=== PATIENT | female | born 1990 | race American Indian/Alaskan Native ===

== ENCOUNTER 2018-06-08 06:00 | Emergency (ER) | payer MEDICAID ==
[2018-06-08] MEDS ORDERED: NACL 0.9% 1000 ML 1,000 ML IV ONE (08:36)
[2018-06-08] MEDS ORDERED: ZOFRAN IV ONE (08:36)
--- NOTE | 2018-06-08 08:37 | Emergency Department Report ---
ED General Adult HPI - General Chief complaint: Nausea/Vomiting/Diarrhea Stated complaint: ABDOMINAL PAIN Time Seen by Provider: 06/08/18 08:29 Source: patient, family, RN notes reviewed Mode of arrival: Ambulatory Limitations: No Limitations - History of Present Illness Initial comments: This is a 27-year-old female who is not known to this provider previously. Patient has a history of asthma, hypertension, and hyperemesis gravidarum. She presents to the ER complaining of lower abdominal cramping, twisting, nausea and vomiting 5, also admits to dysuria. She is not sure if she is . Her symptoms are constant, did not radiate anywhere, worsened when the patient attempts to eat, drink, and decreases with rest. On review of systems, the patient endorses resolved suicidality. She is not suicidal or homicidal currently. She denies access to guns or firearms, hallucinations, denies intentional overdose. -: Gradual Location: abdomen Radiation: non-radiation Quality: aching Consistency: intermittent Improves with: rest Worsens with: eating Associated Symptoms: loss of appetite, malaise, nausea/vomiting, weakness, other (see hpi). denies: confusion, chest pain, cough, diaphoresis, fever/ chills, shortness of breath, syncope - Related Data Previous Rx's Medication Instructions Recorded Last Taken Type Acetaminophen [Tylenol Arthritis] 650 mg PO Q6HR PRN #30 tablet.er 06/08/18 Unknown Rx Doxylamine Succinate/Vit B6 1 each PO QHS PRN #30 tablet. 06/08/18 Unknown Rx [Rodolfo Avila 10-10 mg Tablet] Ary Root [Ary] 250 mg PO QID PRN #30 capsule 06/08/18 Unknown Rx Ondansetron [Zofran Odt] 4 mg PO Q8HR PRN #20 tab.rapdis 06/08/18 Unknown Rx Vit Calc,Iron,Folic 1 each PO QDAY #30 tablet 06/08/18 Unknown Rx [ Vitamins] Allergies Allergy/AdvReac Type Severity Reaction Status Date / Time No Known Allergies Allergy Unverified 06/08/18 06:18 ED Review of Systems ROS: Stated complaint: ABDOMINAL PAIN Other details as noted in HPI Constitutional: malaise. denies: fever Eyes: denies: eye discharge ENT: denies: epistaxis Respiratory: denies: cough Cardiovascular: denies: chest pain Gastrointestinal: abdominal pain, nausea, vomiting Genitourinary: dysuria Musculoskeletal: arthralgia Skin: denies: lesions Neurological: weakness Psychiatric: anxiety. denies: homicidal thoughts ED Past Medical Hx - Past Medical History Hx Hypertension: Yes Hx Asthma: Yes Additional medical history: hyperemesis , htn, anemia, asthma - Surgical History Past Surgical History?: No - Social History Smoking Status: Never Smoker Substance Use Type: None - Medications Home Medications: Home Medications Medication Instructions Recorded Confirmed Last Taken Type Acetaminophen [Tylenol Arthritis] 650 mg PO Q6HR PRN #30 tablet.er 06/08/18 Unknown Rx Doxylamine Succinate/Vit B6 1 each PO QHS PRN #30 tablet.dr 06/08/18 Unknown Rx [Diclegis Dr 10-10 mg Tablet] Ary Root [Ary] 250 mg PO QID PRN #30 capsule 06/08/18 Unknown Rx Ondansetron [Zofran Odt] 4 mg PO Q8HR PRN #20 tab.rapdis 06/08/18 Unknown Rx Vit Calc,Iron,Folic 1 each PO QDAY #30 tablet 06/08/18 Unknown Rx [ Vitamins] ED Physical Exam - General Limitations: No Limitations General appearance: alert, anxious - Head Head exam: Present: atraumatic, normocephalic - Eye Eye exam: Present: normal appearance, EOMI. Absent: nystagmus - ENT ENT exam: Present: normal exam, normal orophraynx, mucous membranes moist, normal external ear exam - Neck Neck exam: Present: normal inspection, full ROM - Respiratory Respiratory exam: Present: normal lung sounds bilaterally. Absent: respiratory distress - Cardiovascular Cardiovascular Exam: Present: regular rate, normal rhythm, normal heart sounds. Absent: bradycardia, tachycardia, irregular rhythm, systolic murmur, diastolic murmur, rubs, gallop - GI/Abdominal GI/Abdominal exam: Present: soft, normal bowel sounds. Absent: distended, tenderness, guarding, rebound, rigid, pulsatile mass - External exam: Present: normal external exam Speculum exam: Present: normal speculum exam. Absent: cervical discharge, vaginal bleeding Bi-manual exam: Present: normal bi-manual exam, other (escorted by nurse Diana Sosa). Absent: cervical motion tendernes, adnexal tenderness, adnexal mass - Extremities Exam Extremities exam: Present: normal inspection, full ROM, normal capillary refill , other (2+ pulses noted in the bilateral upper, lower extremities. Compartments soft. No long bony tenderness. The pelvis is stable.). Absent: tenderness, pedal edema, joint swelling, calf tenderness - Back Exam Back exam: Present: normal inspection, full ROM. Absent: tenderness, CVA tenderness (R), paraspinal tenderness, vertebral tenderness - Neurological Exam Neurological exam: Present: alert, oriented X3, CN II-XII intact, normal gait, other (Extraocular movements intact. Tongue midline. No facial droop. Facial sensation intact to light touch in the V1, V2, V3 distribution bilaterally. 5 and 5 strength in 4 extremities.. Sensation is intact to light touch in 4 extremities.). Absent: motor sensory deficit - Psychiatric Psychiatric exam: Present: anxious. Absent: homicidal ideation - Skin Skin exam: Present: warm, dry, intact, normal color. Absent: rash ED Course Vital Signs 06/08/18 06/08/18 06/08/18 06:03 06:10 09:30 Temperature 98.5 F 98.5 F Pulse Rate 85 91 H Respiratory 18 18 17 Rate Blood Pressure 120/86 120/86 Blood Pressure [Left] O2 Sat by Pulse 93 100 Oximetry 06/08/18 06/08/18 10:00 11:25 Temperature 98.0 F Pulse Rate 90 Respiratory 17 17 Rate Blood Pressure Blood Pressure 122/79 [Left] O2 Sat by Pulse 99 Oximetry - Reevaluation(s) Reevaluation #1: 06/08/18 11:03 Differential diagnosis, including but not limited to: Urinary tract infection, hyperemesis, nausea and vomiting of , incidental , mood disorder, homelessness Assessment and plan: 27-year-old female with a primary complaint of abdominal pain, nausea and vomiting, secondary complaints are resolved suicidality and dysuria. The patient's primary issue appears to be nausea and vomiting associated with . She is afebrile with reassuring vital signs with no right lower quadrant tenderness, rebound or guarding. Her laboratory studies are thus far unremarkable she is Rh+, urinalysis is pending, pelvic ultrasound is pending. She will be given IV fluids and appropriate antiemetic medication. The patient is clinically sober at this time, has a Harper Coma Scale of 15, and is not currently homicidal or suicidal, and is not actively psychotic at this time. She therefore does not meet 1013 criteria. The patient was seen by the crisis team and case management, and was provided outpatient resources for her chronic psychiatric issues. Reevaluation #2: 06/08/18 12:15 Patient's ultrasound confirms intrauterine . Urinalysis demonstrates 37 white blood cells with small leukocyte esterase. No obvious bacteria noted. Cultures pending. She is not actively vomiting; symptoms may be secondary to chlamydia cystitis. Patient will therefore be covered empirically with ceftriaxone, azithromycin. She will be discharged with appropriate nausea medication, vitamins, ary supplementation, instructions to follow up with outpatient gynecology. She will be discharged at this time. 06/08/18 12:16 ED Medical Decision Making - Lab Data Result diagrams: 06/08/18 08:41 06/08/18 08:41 Vital Signs 06/08/18 06/08/18 06:03 06:10 Temperature 98.5 F 98.5 F Pulse Rate 85 91 H Respiratory 18 18 Rate Blood Pressure 120/86 120/86 O2 Sat by Pulse 93 100 Oximetry Lab Results 06/08/18 06/08/18 06/08/18 Range/Units 08:41 08:41 08:41 WBC 7.7 (4.5-11.0) K/mm3 RBC 4.83 (3.65-5.03) M/mm3 Hgb 13.2 (10.1-14.3) gm/dl Hct 40.3 (30.3-42.9) % MCV 83 (79-97) fl MCH 27 L (28-32) pg MCHC 33 (30-34) % RDW 17.6 H (13.2-15.2) % Plt Count 168 (140-440) K/mm3 Sodium 137 (137-145) mmol/L Potassium 4.3 (3.6-5.0) mmol/L Chloride 101.2 (98-107) mmol/L Carbon Dioxide 20 L (22-30) mmol/L Anion Gap 20 mmol/L BUN 6 L (7-17) mg/dL Creatinine 0.5 L (0.7-1.2) mg/dL Estimated GFR > 60 ml/min BUN/Creatinine Ratio 12 % Glucose 85 (65-100) mg/dL Calcium 9.3 (8.4-10.2) mg/dL Total Bilirubin 0.50 (0.1-1.2) mg/dL AST 16 (5-40) units/L ALT 14 (7-56) units/L Alkaline Phosphatase 38 (35-129) units/L Total Protein 7.6 (6.3-8.2) g/dL Albumin 4.3 (3.9-5) g/dL Albumin/Globulin Ratio 1.3 % Lipase 47 (13-60) units/L HCG, Quant 78382 H (0-4) mIU/mL Salicylates (2.8-20.0) mg/dL Acetaminophen (10.0-30.0) ug/mL Plasma/Serum Alcohol (0-0.07) % Blood Type Antibody Screen 06/08/18 06/08/18 06/08/18 Range/Units 08:41 08:41 08:41 WBC (4.5-11.0) K/mm3 RBC (3.65-5.03) M/mm3 Hgb (10.1-14.3) gm/dl Hct (30.3-42.9) % MCV (79-97) fl MCH (28-32) pg MCHC (30-34) % RDW (13.2-15.2) % Plt Count (140-440) K/mm3 Sodium (137-145) mmol/L Potassium (3.6-5.0) mmol/L Chloride (98-107) mmol/L Carbon Dioxide (22-30) mmol/L Anion Gap mmol/L BUN (7-17) mg/dL Creatinine (0.7-1.2) mg/dL Estimated GFR ml/min BUN/Creatinine Ratio % Glucose (65-100) mg/dL Calcium (8.4-10.2) mg/dL Total Bilirubin (0.1-1.2) mg/dL AST (5-40) units/L ALT (7-56) units/L Alkaline Phosphatase (35-129) units/L Total Protein (6.3-8.2) g/dL Albumin (3.9-5) g/dL Albumin/Globulin Ratio % Lipase (13-60) units/L HCG, Quant (0-4) mIU/mL Salicylates < 0.3 L (2.8-20.0) mg/dL Acetaminophen < 5.0 L (10.0-30.0) ug/mL Plasma/Serum Alcohol < 0.01 (0-0.07) % Blood Type Antibody Screen 06/08/18 Range/Units 09:26 WBC (4.5-11.0) K/mm3 RBC (3.65-5.03) M/mm3 Hgb (10.1-14.3) gm/dl Hct (30.3-42.9) % MCV (79-97) fl MCH (28-32) pg MCHC (30-34) % RDW (13.2-15.2) % Plt Count (140-440) K/mm3 Sodium (137-145) mmol/L Potassium (3.6-5.0) mmol/L Chloride (98-107) mmol/L Carbon Dioxide (22-30) mmol/L Anion Gap mmol/L BUN (7-17) mg/dL Creatinine (0.7-1.2) mg/dL Estimated GFR ml/min BUN/Creatinine Ratio % Glucose (65-100) mg/dL Calcium (8.4-10.2) mg/dL Total Bilirubin (0.1-1.2) mg/dL AST (5-40) units/L ALT (7-56) units/L Alkaline Phosphatase (35-129) units/L Total Protein (6.3-8.2) g/dL Albumin (3.9-5) g/dL Albumin/Globulin Ratio % Lipase (13-60) units/L HCG, Quant (0-4) mIU/mL Salicylates (2.8-20.0) mg/dL Acetaminophen (10.0-30.0) ug/mL Plasma/Serum Alcohol (0-0.07) % Blood Type B POSITIVE Antibody Screen Negative Critical care attestation.: If time is entered above; I have spent that time in minutes in the direct care of this critically ill patient, excluding procedure time. ED Disposition Clinical Impression: Disposition: DC-01 TO HOME OR SELFCARE Is pt being admited?: No Does the pt Need Aspirin: No Condition: Stable Instructions: Hyperemesis Gravidarum (ED), Urinary Tract Infection in Women (ED ), Mood Disorders (ED) Additional Instructions: Patient is found to be with an ultrasound confirming an appropriate within the uterus. Symptoms most likely coming from nausea and vomiting associated with . In addition, the urinalysis suggested a possible urinary tract infection. Cultures were sent today, and results will be available in the next 3-5 days. Patient should take the acetaminophen as directed as needed for pain, and the Ary and diclegis as first line therapy for nausea and vomiting associated with . Use the Zofran medication only if the patient has nausea and vomiting that does not respond to the Ary and diclegis. Urinalysis was suggestive but not diagnostic of chlamydia and urinary tract infection. A culture was sent today. Please have a joint filler or primary care doctor contact the medical records department to obtain the culture results. In the meantime, I recommended the patient abstain from sexual activity. Please follow up with a joint filler as soon as possible to initiate outpatient care. Please follow up with outpatient mental health resources that were provided to the patient within the next week. Please return to the ER right away with new pain, worsening pain, migration of pain, intractable nausea or vomiting, fevers or chills, inability to tolerate liquid feeds, confusion. Referrals: [facility] [Outside] - 3-5 Days [facility] [Primary Care Provider] - 3-5 Days [facility] [Provider Group] - 3-5 Days [facility] [Provider Group] - 3-5 Days [facility] [Provider Group] - 3-5 Days Print Language: PORTUGUESE
[2018-06-08 09:03] LABS: Hematocrit 40.3 % (30.3-42.9); Hemoglobin 13.2 gm/dl (10.1-14.3); Mean Corpuscular HGB Conc 33 % (30-34); Mean Corpuscular Hemoglobin 27 pg (28-32); Mean Corpuscular Volume 83 fl (79-97); Platelet Count 168 K/mm3 (140-440); Red Blood Count 4.83 M/mm3 (3.65-5.03); Red Cell Distribution Width 17.6 % (13.2-15.2)
[2018-06-08 09:08] LABS: Alanine Aminotransferase 14 units/L (7-56); Albumin 4.3 g/dL (3.9-5); BUN/Creatinine Ratio 12; Blood Urea Nitrogen 6 mg/dL (7-17); Calcium 9.3 mg/dL (8.4-10.2); Hemolysis Index 4; Lipase 47 units/L (13-60)
[2018-06-08] MEDS ORDERED: SUBLIMAZE IV ONE (09:27)
[2018-06-08] MEDS ORDERED: TYLENOL PO ONE (09:34)
[2018-06-08] MEDS ORDERED: REGLAN IV ONE (10:38)
[2018-06-08] MEDS ORDERED: D5/0.45NS 1,000 ML IV SCH (11:00)
[2018-06-08 11:26] VITALS: BP 122/79
--- NOTE | 2018-06-08 11:43 | Ultrasound Report ---
ULTRASOUND OB LESS THAN 14 WEEKS FETUS ULTRASOUND OB TRANSVAGINAL HISTORY: Abdominal pain during . COMPARISON: None. TECHNIQUE: Transabdominal and transvaginal ultrasound with color doppler interrogation. FINDINGS: Uterus: 10 x 6 x 7 cm. No uterine mass. Normal cervix. Endometrium: An intrauterine gestational sac containing a small pole and yolk sac is identified. Heart rate measures 152 beats per minute. Estimated age on ultrasound of 7 weeks 4 days. Right ovary: Normal. Left ovary: 1.7 cm cyst is noted. Trace fluid is identified in the cul-de-sac which is probably physiologic. Normal color doppler interrogation. IMPRESSION: Viable, single intrauterine as described. No acute abnormality is detected. 1.7 cm left ovarian cyst.
[2018-06-08 11:54] LABS: Bilirubin,Urine NEG (Negative); Blood,Urine NEG (Negative); Color,Urine Yellow (Yellow)
[2018-06-08 11:57] LABS: Amphetamine Screen,Urine PRESUMPTIVE NEGATIVE; Benzodiazepines Screen,Urine PRESUMPTIVE NEGATIVE; Cocaine Screen,Urine PRESUMPTIVE NEGATIVE; Methadone Screen,Urine PRESUMPTIVE NEGATIVE; Opiate Screen,Urine PRESUMPTIVE NEGATIVE
[2018-06-08] MEDS ORDERED: NACL 0.9% 1000 ML 0 ML ONE (12:05)
[2018-06-08] MEDS ORDERED: ROCEPHIN 250 MG in NACL 0.9% 50 ML IV STA (12:15)
[2018-06-08] MEDS ORDERED: ZITHROMAX PO ONE (12:15)
[2018-06-08 12:16] LABS: Cannabinoid Screen,Urine PRESUMPTIVE POSITIVE
== END 2018-06-08 14:03 | disposition home or self-care (01) ==
LOC: ED 06:00
DX: O21.0 Mild hyperemesis gravidarum (principal); I10 Essential (primary) hypertension; J45.909 Unspecified asthma, uncomplicated; Z86.2 Personal history of diseases of the blood and blood-forming organs and certain disorders involving the immune mechanism
CPT/HCPCS: 36415; 51701; 76801; 76817; 80053; 80307; 81001; 83690; 84702; 85027; 86850; 86900; 86901; 87086; 87210; 87591; 96361; 96374; 96375; 99284; G0480; J0696; J2405; J2765; J3010; J7030; 80320

== ENCOUNTER 2018-06-08 14:22 | Emergency (ER) | payer MEDICAID ==
[2018-06-08 14:29] VITALS: BP 155/93
--- NOTE | 2018-06-08 20:07 | Emergency Department Report ---
ED N/V/D HPI - General Chief complaint: Abdominal Pain Stated complaint: ABD PAIN/VOMITING Time Seen by Provider: 06/08/18 19:38 Source: patient, family Mode of arrival: Ambulatory Limitations: No Limitations - History of Present Illness Initial comments: This is a 27-year-old female who is not known to this provider previously. Patient has a history of asthma, hypertension, and hyperemesis gravidarum. She presents to the ER complaining of lower abdominal cramping, twisting, nausea and vomiting 5, also admits to dysuria. She is not sure if she is . Her symptoms are constant, did not radiate anywhere, worsened when the patient attempts to eat, drink, and decreases with rest. On review of systems, the patient endorses resolved suicidality. She is not suicidal or homicidal currently. She denies access to guns or firearms, hallucinations, denies intentional overdose. Patient was seen earlier today by Dr. Alexander and was treated for nausea and vomiting. She did not told him that she has constipation. She says she still have an abdominal pain to her epigastric area and also she is having in nausea and retching. Patient was given prescription for Diclegis just for nausea, Tylenol ES , ary root, Zofran. Patient apparently has a history of suicide ideation but she denies any suicidal ideation today or homicidal ideation. Patient states she is homeless and she lives in a alf and HER-2 other kids are with her father she has no one and she does have a right back to the alf. MD complaint: nausea, vomiting, abdominal pain, other (constipation) Onset/Timin (she was here today and was seen by Dr. Leatha Burkett) -: week(s) Description of Vomiting: food contents Associated Abdominal Pain: Yes Location: epigastric Radiation: none Severity: severe Pain Scale: 10 Quality: cramping Consistency: constant Improves with: none Worsens with: none Context: other ( with nausea and vomiting) Associated Symptoms: nausea/vomiting. denies: myalgias, chest pain, cough, diaphoresis, headaches, loss of appetite, malaise, rash, shortness of breath, syncope, weakness - Related Data Previous Rx's Medication Instructions Recorded Last Taken Type Acetaminophen [Tylenol Arthritis] 650 mg PO Q6HR PRN #30 tablet.er 06/08/18 Unknown Rx Bisacodyl [Dulcolax] 10 mg PO DAILY PRN 1 Days #2 tab 06/08/18 Unknown Rx Doxylamine Succinate/Vit B6 1 each PO QHS PRN #30 tablet. 06/08/18 Unknown Rx [Rodolfo Avila 10-10 mg Tablet] Ary Root [Ary] 250 mg PO QID PRN #30 capsule 06/08/18 Unknown Rx Nitrofurantoin [place]/M-Cryst 100 mg PO Q12HR 7 Days #14 capsule 06/08/18 Unknown Rx [Macrobid CAP] Ondansetron [Zofran Odt] 4 mg PO Q8HR PRN #20 tab.rapdis 06/08/18 Unknown Rx Vit Calc,Iron,Folic 1 each PO QDAY #30 tablet 06/08/18 Unknown Rx [ Vitamins] Sodium Phosphate,[place]-Dibasic 118 ml RC ONCE 1 Days #1 enema 06/08/18 Unknown Rx [Fleet Enema] Allergies Allergy/AdvReac Type Severity Reaction Status Date / Time No Known Allergies Allergy Verified 06/08/18 14:27 ED Review of Systems ROS: Stated complaint: ABD PAIN/VOMITING Other details as noted in HPI Constitutional: denies: chills, fever Eyes: denies: eye pain, eye discharge, vision change ENT: denies: ear pain, throat pain, congestion Respiratory: denies: cough, shortness of breath, SOB with exertion, SOB at rest , stridor, wheezing Cardiovascular: denies: chest pain, palpitations, edema, syncope Gastrointestinal: abdominal pain, nausea, vomiting, constipation. denies: diarrhea, hematemesis, melena, hematochezia Genitourinary: dysuria, other (, no vaginal bleeding. Denies any vaginal discharge). denies: urgency, frequency, hematuria, discharge Musculoskeletal: denies: back pain, joint swelling, arthralgia, myalgia Skin: denies: rash, lesions Neurological: denies: headache, weakness, numbness, paresthesias, confusion, abnormal gait, vertigo ED Past Medical Hx - Past Medical History Previous Medical History?: Yes Hx Hypertension: Yes Hx Asthma: Yes Additional medical history: hyperemesis , htn, anemia, asthma - Surgical History Past Surgical History?: Yes - Family History Family history: hypertension - Social History Smoking Status: Current Every Day Smoker Substance Use Type: Marijuana - Medications Home Medications: Home Medications Medication Instructions Recorded Confirmed Last Taken Type Acetaminophen [Tylenol Arthritis] 650 mg PO Q6HR PRN #30 tablet.er 06/08/18 Unknown Rx Bisacodyl [Dulcolax] 10 mg PO DAILY PRN 1 Days #2 tab 06/08/18 Unknown Rx Doxylamine Succinate/Vit B6 1 each PO QHS PRN #30 tablet.dr 06/08/18 Unknown Rx [Diclegis Dr 10-10 mg Tablet] Ary Root [Ary] 250 mg PO QID PRN #30 capsule 06/08/18 Unknown Rx Nitrofurantoin [place]/M-Cryst 100 mg PO Q12HR 7 Days #14 capsule 06/08/18 Unknown Rx [Macrobid CAP] Ondansetron [Zofran Odt] 4 mg PO Q8HR PRN #20 tab.rapdis 06/08/18 Unknown Rx Vit Calc,Iron,Folic 1 each PO QDAY #30 tablet 06/08/18 Unknown Rx [ Vitamins] Sodium Phosphate,[place]-Dibasic 118 ml RC ONCE 1 Days #1 enema 06/08/18 Unknown Rx [Fleet Enema] ED Physical Exam - General Limitations: No Limitations General appearance: alert, in no apparent distress - Head Head exam: Present: atraumatic, normocephalic, normal inspection - Eye Eye exam: Present: normal appearance, PERRL, EOMI. Absent: periorbital swelling , periorbital tenderness Pupils: Present: normal accommodation - ENT ENT exam: Present: normal exam, normal orophraynx, mucous membranes moist, TM's normal bilaterally, normal external ear exam - Neck Neck exam: Present: normal inspection, full ROM. Absent: tenderness, lymphadenopathy - Respiratory Respiratory exam: Present: normal lung sounds bilaterally. Absent: respiratory distress, chest wall tenderness - Cardiovascular Cardiovascular Exam: Present: normal rhythm, tachycardia, normal heart sounds. Absent: systolic murmur, diastolic murmur - GI/Abdominal GI/Abdominal exam: Present: soft, normal bowel sounds. Absent: distended, tenderness, guarding, rebound, rigid, organomegaly, mass, bruit, pulsatile mass , hernia - Extremities Exam Extremities exam: Present: normal inspection, full ROM, normal capillary refill , other (No cce. + 2 pulses in all extremities, no neurovascular compromise). Absent: tenderness, pedal edema, joint swelling, calf tenderness - Back Exam Back exam: Present: normal inspection, full ROM, other. Absent: tenderness, CVA tenderness (R), CVA tenderness (L), muscle spasm, paraspinal tenderness, vertebral tenderness, rash noted - Neurological Exam Neurological exam: Present: alert, oriented X3 - Psychiatric Psychiatric exam: Present: normal affect, normal mood - Skin Skin exam: Present: warm, dry, intact, normal color. Absent: rash ED Course Vital Signs 06/08/18 06/08/18 14:27 23:01 Temperature 98.2 F Pulse Rate 105 H 100 H Respiratory 16 Rate Blood Pressure 155/93 O2 Sat by Pulse 99 Oximetry - Reevaluation(s) Reevaluation #1: 06/08/18 21:50 She was given normal saline bolus and Zofran 8 mg IV. She reports that her abdominal pain is gone and she is feeling a lot better. She denies any nausea or vomiting at present. I discussed the patient that she has a urinary tract infection and I will put her on Macrobid to start before she leaves the hospital. Abdominal exam remains the same Reevaluation #2: 06/08/18 23:12 No changes in abdominal assessment she says she is feeling a lot better. Patient has prescription for the diglegis, ary root, Tylenol extra strength, Zofran that she was given today prior to her discharge. She is able to tolerate oral liquids without any difficulties. No abdominal pain or nausea vomiting at present. ED Medical Decision Making - Lab Data Patient had a urinalysis today does show that she has white cells in her urine, leukocyte esterase but no bacteria. She was treated and main ED with azithromycin and Rocephin for STD and cultures were sent off. She had 20 of ketones in her urine. Patient chemistry was normal. 1 dictated hCG correlates with ultrasound. - Radiology Data Radiology results: report reviewed Ultrasound transabdominal intense vaginal shows viable intrauterine at 7 weeks and 4 days with heart rate at 152 bpm. Right ovary is normal and left ovary with cyst. This was dictated by radiologist and report was reviewed myself. Patient: DANK MURRAY MR#: [id number] : 1990 Acct:[id number] Age/Sex: 27 / F ADM Date: 06/08/18 Loc: ED Attending Dr: Ordering Physician: HEYDI ALEXANDER MD Date of Service: 06/08/18 Procedure(s): US OB transvaginal Accession Number(s): [id number] cc: HEYDI ALEXANDER MD ULTRASOUND OB LESS THAN 14 WEEKS FETUS ULTRASOUND OB TRANSVAGINAL HISTORY: Abdominal pain during . COMPARISON: None. TECHNIQUE: Transabdominal and transvaginal ultrasound with color doppler interrogation. FINDINGS: Uterus: 10 x 6 x 7 cm. No uterine mass. Normal cervix. Endometrium: An intrauterine gestational sac containing a small pole and yolk sac is identified. Heart rate measures 152 beats per minute. Estimated age on ultrasound of 7 weeks 4 days. Right ovary: Normal. Left ovary: 1.7 cm cyst is noted. Trace fluid is identified in the cul-de-sac which is probably physiologic. Normal color doppler interrogation. IMPRESSION: Viable, single intrauterine as described. No acute abnormality is detected. 1.7 cm left ovarian cyst. Transcribed By: TTR Dictated By: GENO DUPREE JR, MD Electronically Authenticated By: GENO DUPREE JR, MD Signed Date/Time: 06/08/18 1137 DD/ 1135 TD/TT: 06/08/18 1137 Findings [facility] [address] [place] [address] Ultrasound Report Signed Patient: DANK MURRAY MR#: [id number] : 1990 Acct:[id number] Age/Sex: 27 / F ADM Date: 06/08/18 Loc: ED Attending Dr: Ordering Physician: HEYDI ALEXANDER MD Date of Service: 06/08/18 Procedure(s): US OB <= 14 weeks fetus Accession Number(s): [id number] cc: HEYDI ALEXANDER MD ULTRASOUND OB LESS THAN 14 WEEKS FETUS ULTRASOUND OB TRANSVAGINAL HISTORY: Abdominal pain during . COMPARISON: None. TECHNIQUE: Transabdominal and transvaginal ultrasound with color doppler interrogation. FINDINGS: Uterus: 10 x 6 x 7 cm. No uterine mass. Normal cervix. Endometrium: An intrauterine gestational sac containing a small pole and yolk sac is identified. Heart rate measures 152 beats per minute. Estimated age on ultrasound of 7 weeks 4 days. Right ovary: Normal. Left ovary: 1.7 cm cyst is noted. Trace fluid is identified in the cul-de-sac which is probably physiologic. Normal color doppler interrogation. IMPRESSION: Viable, single intrauterine as described. No acute abnormality is detected. 1.7 cm left ovarian cyst. Transcribed By: TTR Dictated By: GENO DUPREE JR, MD Electronically Authenticated By: GENO DUPREE JR, MD Signed Date/Time: 06/08/181136 DD/ 34 TD/TT: 06/08/181136 - Medical Decision Making This is a 27-year-old female that return to the emergency room after being seen by today and was discharged on nausea medication and pain medication , vitamin. She is also refer to [employer] and primary care. She was treated for gonorrhea and chlamydia in emergency room. Patient had lab work done which was stable and a urinalysis showed that she has 20 ketones, positive leukocyte Estrace and positive white cell without any bacteria. Patient with positive and she had ultrasound which reflect that she has IUP which was stable. She was discharged from ED and she returned to say that she is having nausea and vomited with abdominal pain and constipation. I saw and examined patient and her abdominal exam is normal, she is not having any vaginal bleeding or discharge. She complains of dysuria and her urinalysis shows that she has some white cells and Estrace. She is complaining of nausea and retching with epigastric pain. Her lab work from today to include CBC and chemistry were stable and her ultrasound which was dictated by radiologist's and report reviewed by myself shows that patient has intrauterine which was stable. Patient had urine culture sent earlier today when she was seen by attending physician in ED. I explained to her as this previously explained by her attending physician and that she has nausea and vomiting from but her lab work does not show that she is grossly dehydrated. She did not fill her prescription as yet. Patient was given IV fluid in emergency room 1 L normal saline, Zofran 8 mg IV and often reevaluation she says she felt much better and her pain is better. I suggest the patient that she needs to call Dr. Yohannes Craft spoke to regarding patient situation and he wants her to follow-up in his office to call tomorrow to schedule an appointment. She voiced understanding and I also instructed her that she needs to increase her fluid intake to prevent dehydration. Assessment/plan Nausea and vomiting in -patient given Zofran 8 mg IV and 1 L normal saline and said that she felt better. I discussed with her that she needs to follow attending physician discharge discharged in and take Diclegis prescribed and if that does not work she needs to take Zofran that was prescribed. And also ary root. -ultrasound shows patient with IUP at 7 weeks and 4 days with heart beat at 152 bpm. She has left ovarian cyst and her right ovary is normal. Urinary Tract Infection in -patient was given Rocephin in the emergency room today by Dr. ana Perry. HI will give her a dose of Macrobid and send her home and Macrobid. Abdominal pain and -patient pain has resolved. Constipation-she has said she did not have a normal bowel movement for 2 weeks. I will send her home on Dulcolax and also Fleet enema Patient education Please follow up with a intermediate accountant as soon as possible to initiate outpatient care. Increased fluid intake Follow-up Dr. Yohannes Paez [employer] for care Please state Macrobid for urinary tract infection Take medication that was prescribed by attending physician while you were in the emergency room today for nausea, pain and vitamin. Please return to the ER right away with new pain, worsening pain, migration of pain, intractable nausea or vomiting, fevers or chills, inability to tolerate liquid feeds, confusion. Avoid sexual activity Instruction from attending physician for outpatient mental health care Patient was on a standard discharge instruction and she was discharged home in stable condition, vital signs are stable and she is afebrile. She says she is feeling better. Discharged from ED with prescription for Macrobid and medication for constipation to include Dulcolax tablet and Fleet enema. - Differential Diagnosis hyperemesis gravidarum, UTI,Dehydration,constipation Critical care attestation.: If time is entered above; I have spent that time in minutes in the direct care of this critically ill patient, excluding procedure time. ED Disposition Clinical Impression: Abdominal pain during intrauterine , Nausea and vomiting during prior to 22 weeks gestation Constipation Qualifiers: Constipation type: unspecified constipation type Qualified Code(s): K59.00 - Constipation, unspecified Acute cystitis Qualifiers: Hematuria presence: without hematuria Qualified Code(s): N30.00 - Acute cystitis without hematuria Disposition: TO HOME OR SELFCARE Is pt being admited?: No Does the pt Need Aspirin: No Condition: Stable Instructions: Abdominal Pain (ED), Morning Sickness (ED), Acute Nausea and Vomiting (ED), Constipation (ED), High Fiber Diet (ED), Dysuria (ED), Urinary Tract Infection in Women (ED) Additional Instructions: Please follow up with a intermediate accountant as soon as possible to initiate outpatient care. Increased fluid intake Follow-up Dr. Yohannes Paez [employer] for care Please state Macrobid for urinary tract infection Take medication that was prescribed by attending physician while you were in the emergency room today for nausea, pain and vitamin. Please return to the ER right away with new pain, worsening pain, migration of pain, intractable nausea or vomiting, fevers or chills, inability to tolerate liquid feeds, confusion. Avoid sexual activity Instruction from attending physician for outpatient mental health care Prescriptions: Bisacodyl [Dulcolax] 10 mg PO DAILY PRN 1 Days #2 tab PRN Reason: Constipation Nitrofurantoin [place]/M-Cryst [Macrobid CAP] 100 mg PO Q12HR 7 Days #14 capsule Sodium Phosphate,[place]ail-Dibasic [Fleet Enema] 118 ml RC ONCE 1 Days #1 enema Referrals: PRIMARY CAREMD [Primary Care Provider] - 06/09/18 GENO PAEZ MD [Staff Physician] - 06/09/18 [facility] [Outside] - 06/09/18
[2018-06-08] MEDS ORDERED: NACL 0.9% 1000 ML 1,000 ML IV ONE (20:09)
[2018-06-08] MEDS ORDERED: ZOFRAN IV ONE (20:09)
[2018-06-08] MEDS ORDERED: MACROBID PO ONE (23:11)
== END 2018-06-09 00:10 | disposition home or self-care (01) ==
LOC: ED 14:22
DX: O21.0 Mild hyperemesis gravidarum (principal); N30.00 Acute cystitis without hematuria; K59.00 Constipation, unspecified; I10 Essential (primary) hypertension; O99.512 Diseases of the respiratory system complicating pregnancy, second trimester; J45.909 Unspecified asthma, uncomplicated; O99.332 Smoking (tobacco) complicating pregnancy, second trimester; Z86.2 Personal history of diseases of the blood and blood-forming organs and certain disorders involving the immune mechanism; Z3A.22 22 weeks gestation of pregnancy
CPT/HCPCS: 96361; 96374; 99283; J2405; J7030